=== PATIENT | female | born 1960 | race Caucasian/White ===

== ENCOUNTER → 2016-10-14 | Outpatient (REF) | payer MEDICARE, MEDICAID ==
[~2016-10-14] MED LIST: AMIT10TA2 PO; BLACK COHOSH PO; ESTRAVAN PO; TOPI100T OR; norco PO
== END ==
LOC: M LAB REF 20:14
PROVIDERS: ATTEND Physician Assistant
DX: R35.0 Frequency of micturition (principal)

== ENCOUNTER → 2016-11-16 | Outpatient (REF) | payer MEDICARE, MEDICAID ==
[2016-11-16 11:51] LABS: BASO % 0.4 % (0.0-1.0); EOS # 0.2 K/mm3 (0.0-0.50); EOS % 3.5 % (0.0-3.0); LARGE UNSTAINED CELL # 0.1 K/mm3 (0.0-0.4); LARGE UNSTAINED CELL % 1.1 % (0.0-4.0); LYMPH # 1.9 K/mm3 (1.5-4.5); LYMPH % 31.7 % (24.0-44.0); MEAN CORPUSCULAR HEMOGLOBIN 27.9 pg (27.0-33.0); MEAN CORPUSCULAR HGB CONC 32.1 g/dl (32.0-36.5); MEAN CORPUSCULAR VOLUME 87.1 fl (80.0-96.0); MONO # 0.3 K/mm3 (0.0-0.8); MONO % 5.8 % (0.0-5.0); NEUTROPHILS # 3.3 K/mm3 (1.8-7.7); NEUTROPHILS % 57.6 % (36.0-66.0); PLATELET COUNT, AUTOMATED 282 k/mm3 (150-450); WHITE BLOOD COUNT 5.6 K/mm3 (4.0-10.0)
[2016-11-16 12:16] LABS: VITAMIN B12 LEVEL 360 PG/ML (247-911)
[2016-11-16 12:32] LABS: ALBUMIN 3.5 GM/DL (3.2-5.2); ALBUMIN/GLOBULIN RATIO 1.09 (1.00-1.93); ALKALINE PHOSPHATASE 74 U/L (45-117); ALT/SGPT 25 U/L (12-78); ANION GAP 10 MEQ/L (8-16); AST/SGOT 15 U/L (15-37); BILIRUBIN,TOTAL 0.4 MG/DL (0.2-1.0); BLOOD UREA NITROGEN 16 MG/DL (7-18); CALCIUM LEVEL 9.1 MG/DL (8.5-10.1); CARBON DIOXIDE LEVEL 28 MEQ/L (21-32); CHLORIDE LEVEL 103 MEQ/L (98-107); CREATININE FOR GFR 0.77 MG/DL (0.55-1.02); GLOMERULAR FILTRATION RATE > 60.0 (>51); GLUCOSE, FASTING 82 MG/DL (70-105); PERCENT SATURATION 27.1 % (13.2-37.4); POTASSIUM SERUM 4.6 MEQ/L (3.5-5.1); SODIUM LEVEL 141 MEQ/L (136-145); TOTAL IRON BINDING CAPACITY 402 UG/DL (250-450); TOTAL PROTEIN 6.7 GM/DL (6.4-8.2)
[2016-11-16 12:49] LABS: ERYTHROCYTE SEDIMENTATION RATE 6 mm/hr (0-30)
[2016-11-18 00:06] LABS: Lyme Disease IgG/IgM Antibodie <0.91 ISR (0.00-0.90); Lyme Disease IgM Ab Quantitati <0.80 index (0.00-0.79)
== END ==
LOC: M LABDRAW1 11:28
PROVIDERS: ATTEND Internal Medicine Rheumatology
DX: M35.9 Systemic involvement of connective tissue, unspecified (principal); R53.83 Other fatigue; E55.9 Vitamin D deficiency, unspecified; D51.0 Vitamin B12 deficiency anemia due to intrinsic factor deficiency; Z79.899 Other long term (current) drug therapy

== ENCOUNTER → 2017-04-01 | Outpatient (CLI) | payer MEDICARE, MEDICAID ==
--- NOTE | 2017-04-01 11:29 | REPMRS ---
Patient History The patient states she had a clinical breast exam in March 2017. Patient has history of ovarian cancer at age 27. Family history of ovarian cancer in paternal aunt and breast cancer in maternal aunt. Benign stereotatic loc for ea lesion of the right breast, December 11, 2015. Digital Mammo Screening Bilat: April 01, 2017 - Exam #: [id number] Bilateral CC and MLO view(s) were taken. Technologist: Anamika Basilio Technologist Prior study comparison: October 30, 2015, bilateral digital mammo screening bilat performed at [facility]. March 27, 2015, right breast digital mammo diagnostic unilateral performed at [facility]. FINDINGS: The breast tissue is heterogeneously dense. This may lower the sensitivity of mammography. There is no evidence of cancer on this mammogram. There is mild increase in size of two right breast cysts and one left breast cyst... ASSESSMENT: BI-RADS/ACR category 2 mammogram. Benign finding(s). Recommendation Routine screening mammogram of both breasts in 1 year (for women over age 40). This mammogram was interpreted with the aid of an FDA-approved computer-aided dectection system. Electronically Signed By: Klaus Costa MD 04/01/17 [id number]
--- NOTE | 2017-04-01 12:11 | REP ---
Pelvic sonography: History: Lower quadrant pain on the left. Findings: Transabdominal and transvaginal scanning are performed. The uterus is surgically absent. Bladder rags[place] are smooth. No free fluid is seen. Neither ovary is observed either transabdominally or transvaginally. No ovarian cyst or mass is seen. Impression: Normal pelvic sonography status post hysterectomy. No ovarian lesion is seen. Neither ovary is directly visualized however. Signed by Jacob Arrington MD 04/01/2017 12:32 P
== END ==
LOC: M RAD 09:05
PROVIDERS: ATTEND Nurse Practitioner Women's Health
DX: Z12.31 Encounter for screening mammogram for malignant neoplasm of breast (principal); R10.32 Left lower quadrant pain; Z86.018 Personal history of other benign neoplasm; Z85.43 Personal history of malignant neoplasm of ovary
CPT/HCPCS: 76830; 76856; G0202

== ENCOUNTER → 2017-06-09 | Outpatient (CLI) | payer MEDICARE, MEDICAID ==
--- NOTE | 2017-06-10 08:05 | REP ---
PA and PA and lateral chest: Comparison is 12/03/2013. There is chronic effacement right costophrenic angle, unchanged, pleural effusion versus chronic pleural effusion. The lung aguayo otherwise clear. Cardiac size is normal. The vlad, mediastinum, and bony thorax are unremarkable. Impression: Chronic effacement left costophrenic angle. Otherwise, negative PA and lateral chest. Signed by Klaus Nolasco MD 06/10/2017 07:56 A
== END ==
LOC: M RAD 17:52
PROVIDERS: ATTEND Physician Assistant
DX: R91.8 Other nonspecific abnormal finding of lung field (principal)

== ENCOUNTER → 2017-06-15 | Outpatient (CLI) | payer MEDICARE, MEDICAID ==
[~2017-06-15] MED LIST changes: +ISOVUE-370 76% 100ML VIAL (Q9967) As Ordered ONE
--- NOTE | 2017-06-15 11:15 | REP ---
CT of the chest with IV contrast: Comparisons are the plain film PA and lateral views of the chest dated 06/09/[address] of the chest dated 05/29/2013. Additionally the visualized lower lung aguayo on CT studies of the abdomen are reviewed dated 09/26/2014 and 01/09/2015. There is chronic pleural thickening and chronic scarring in the adjacent lung parenchyma posterolaterally in the right lower lobe and to a lesser degree anterolaterally in the right lower lobe and right middle lobe, unchanged from all prior studies. There is no nodule or mass. No enlarging lesion. No pleural fluid is identified. There are no infiltrates or effusions. There are no masses or nodules. There is no mediastinal or hilar lymph node enlargement. There is no axillary lymph node enlargement. The thoracic aorta is unremarkable. Cardiac size is normal. There is no pericardial effusion. The visualized upper abdominal contents are unremarkable. There is no adrenal mass. Impression: There is chronic pleuroparenchymal scarring in the deep inferior sulcus of the right lung posteriorly, laterally and anteriorly, unchanged from the prior studies. Otherwise, negative CT study of the chest. Signed by Klaus Nolasco MD 06/15/2017 11:07 A
== END ==
LOC: M RAD 08:10
PROVIDERS: ATTEND Nurse Practitioner Adult Health
DX: R05 Cough (principal); R91.8 Other nonspecific abnormal finding of lung field; R07.89 Other chest pain
CPT/HCPCS: 71260; Q9967

== ENCOUNTER → 2017-10-13 | Outpatient (CLI) | payer MEDICARE, MEDICAID ==
[~2017-10-13] MED LIST changes: -AMIT10TA2 PO; -BLACK COHOSH PO; +E-Z-GAS II EFFERVESCENT PACKET (SODIUM BICARB./CITRIC ACID/SIMETHICONE) As Ordered; +E-Z-HD 98% w/w 340GM SUSP BTL As Ordered; +E-Z-PAQUE 96% w/w SUSP 176GM BTL As Ordered; -ESTRAVAN PO; -ISOVUE-370 76% 100ML VIAL (Q9967) As Ordered ONE; -TOPI100T OR; -norco PO
== END ==
LOC: M RAD 08:07
DX: R13.10 Dysphagia, unspecified (principal); K21.9 Gastro-esophageal reflux disease without esophagitis; K22.5 Diverticulum of esophagus, acquired; K44.9 Diaphragmatic hernia without obstruction or gangrene
CPT/HCPCS: 74220

== ENCOUNTER 2019-04-22 13:34 | Emergency (ER) | payer MEDICARE, MEDICAID ==
[~2019-04-22] VITALS: Ht 170.2 cm; Wt 84.1 kg
[~2019-04-22 13:34] MED LIST changes: +AMIT10TA2 PO; +BLACK COHOSH PO; -E-Z-GAS II EFFERVESCENT PACKET (SODIUM BICARB./CITRIC ACID/SIMETHICONE) As Ordered; -E-Z-HD 98% w/w 340GM SUSP BTL As Ordered; -E-Z-PAQUE 96% w/w SUSP 176GM BTL As Ordered; +ESTRAVAN PO; +TOPI100T OR; +norco PO
[2019-04-22] MEDS ORDERED: ACETAMINOPHEN TAB 650MG DOSE (2X325MG) PO ONE (14:00)
[2019-04-22] MEDS ORDERED: RANI300T PO (14:11)
[2019-04-22] MEDS ORDERED: METO1TAB32 PO (14:11)
[2019-04-22] MEDS ORDERED: ESTR625TA PO (14:11)
[2019-04-22] MEDS ORDERED: PANT40TA3 PO (14:11)
--- NOTE | 2019-04-22 14:15 | REP ---
Clinical: Altered mental status. Findings: Age-related atrophy and microvascular ischemic changes are appreciated. The ventricles and sulci are symmetric. Costa-white differentiation is maintained. There is no evidence for acute intracranial hemorrhage, mass/mass effect, pathology or infarction. No extra-axial fluid collection. Calvarium is intact. Paranasal sinuses and mastoid air cells are clear. Impression: Age related atrophy and microvascular ischemic changes. No acute intracranial hemorrhage, infarction, or mass/mass effect. Electronically Signed by Moises Sinclair MD 04/22/2019 02:06 P
--- NOTE | 2019-04-22 14:16 | REP ---
Clinical: Chest pain. Technique: PA and lateral. Comparison: 05/09/2013 Findings: Mediastinum and cardiac silhouette are normal. Chronic pleuroparenchymal changes at the right base are noted. No acute consolidation, effusion, or pneumothorax. Skeletal structures intact. Impression: Chronic pleuroparenchymal changes (right greater than left). Electronically Signed by Moises Sinclair MD 04/22/2019 02:08 P
[2019-04-22 14:17] LABS: BASO # 0.1 10^3/uL (0.0-0.2); BASO % 0.9 % (0.0-1.0); EOS # 0.3 10^3/uL (0.0-0.50); EOS % 3.9 % (0.0-3.0); HEMATOCRIT 42.5 % (36.0-47.0); HEMOGLOBIN 13.6 g/dl (12.0-15.5); LYMPH # 1.7 10^3/uL (1.5-4.5); LYMPH % 25.1 % (24.0-44.0); MEAN CORPUSCULAR VOLUME 87.4 fl (80.0-96.0); MONO # 0.5 10^3/uL (0.0-0.8); MONO % 7.6 % (0.0-5.0); NEUTROPHILS # 4.2 10^3/uL (1.8-7.7); NEUTROPHILS % 62.2 % (36.0-66.0); PLATELET COUNT, AUTOMATED 286 10^3/uL (150-450); RED BLOOD COUNT 4.86 10^6/uL (4.00-5.40); WHITE BLOOD COUNT 6.7 10^3/uL (4.0-10.0)
[2019-04-22 14:28] LABS: INR 0.99; PROTHROMBIN TIME 12.8 SECONDS (11.8-14.0)
[2019-04-22 14:29] LABS: PARTIAL THROMBOPLASTIN TIME 27.2 SECONDS (25.0-38.4)
[2019-04-22 14:46] LABS: ALBUMIN 3.2 GM/DL (3.2-5.2); ALT/SGPT 423 U/L (12-78); BILIRUBIN,DIRECT 1.9 MG/DL (0.0-0.2); BILIRUBIN,TOTAL 2.8 MG/DL (0.2-1.0); BLOOD UREA NITROGEN 12 MG/DL (7-18); CALCIUM LEVEL 8.6 MG/DL (8.8-10.2); CARBON DIOXIDE LEVEL 28 MEQ/L (21-32); CHLORIDE LEVEL 105 MEQ/L (98-107); CK-MB VALUE MASS < 1.0 NG/ML (<3.6); CPK CREATINE PHOSPHOKINASE 66 U/L (26-192); CREATININE FOR GFR 0.79 MG/DL (0.55-1.30); GLOMERULAR FILTRATION RATE > 60.0 (>45); GLUCOSE, FASTING 101 MG/DL (70-100); LIPASE 261 U/L (73-393); MB/CK RELATIVE INDEX 1.52 (< OR =4); POTASSIUM SERUM 3.9 MEQ/L (3.5-5.1); SODIUM LEVEL 139 MEQ/L (136-145); TROPONIN I < 0.02 NG/ML (< 0.10)
[2019-04-22] MEDS ORDERED: ISOVUE-370 76% 100ML VIAL (Q9967) As Ordered ONE (15:05)
[2019-04-22 15:45] VITALS: BP 117/59
--- NOTE | 2019-04-23 07:53 | REP ---
Clinical: Chest pain. Rule out aortic dissection. Technique: Axial contrast enhanced images from the thoracic inlet to the upper abdomen with coronal and sagittal re-formations using 100 ml Isovue 370 intravenous contrast material. Comparison: 05/29/2013 Findings: Maximal enhancement of the thoracic aorta is achieved and there is no evidence for aortic aneurysm or dissection. No significant atherosclerotic changes noted. Heart and pericardium are normal. Pulmonary vasculature appears normal. No adenopathy. The bilateral lung aguayo demonstrate minimal chronic right basilar fibroatelectatic changes. No consolidation. No effusion. No pneumothorax. Osseous structures grossly intact. Impression: 1. Normal thoracic aorta without aneurysm or dissection. Normal heart/pericardium and pulmonary vasculature. 2. Chronic scarring at the right lung base. 3. No acute mediastinal or pleuroparenchymal process. Electronically Signed by Moises Sinclair MD 04/22/2019 03:25 P
--- NOTE | 2019-04-23 07:54 | REP ---
Clinical: Chest pain. Rule out abdominal aortic dissection. Technique: Axial contrast enhanced images from the lung bases to the pubic symphysis using 100 ml Isovue 370 intravenous contrast material with coronal and sagittal re-formations. Findings: Maximal enhancement of the aorta and branch vessels achieved and there is no evidence for abdominal aortic aneurysm or dissection. Very minimal atherosclerotic changes are noted. Branch vessels including celiac axis, superior mesenteric artery, inferior mesenteric artery, bilateral renal arteries and common iliac arteries are normal. Liver, spleen, pancreas, gallbladder, bilateral adrenal glands and kidneys are normal. The enteric system is without obstruction or acute inflammatory process. Normal terminal ileum and appendix identified in the right lower quadrant. Colonic/sigmoid diverticulosis noted without acute diverticulitis. Pelvis demonstrates normal bladder and evidence for prior hysterectomy. No ascites. No free air. No adenopathy. Musculoskeletal structures demonstrate age-related degenerative changes. Impression: 1. Normal abdominal aorta and branch vessels without aneurysm or dissection. 2. No obvious acute abdominopelvic pathology appreciated. No ascites, focal inflammatory stranding, or adenopathy. Electronically Signed by Moises Sinclair MD 04/22/2019 03:29 P
--- NOTE | 2019-04-23 19:44 | ECGEPIP ---
[facility] - ED Test Date: 2019-04-22 Pat Name: MICA SOSA Department: Room: - Gender: Female [employer] Superintendent: [facility] : 1960 Requested By: DAYNE García Order Number: [id number] Reading MD: Elliot Olvera Measurements Intervals [place] Rate: 79 P: 20 AL: 137 QRS: 23 QRSD: 105 T: 46 QT: 387 QTc: 444 Interpretive Statements SINUS RHYTHM NONSPECIFIC ST T WAVE CHANGES cw 07/03/15 rate increased [facility] Electronically Signed on 04-23-2019 19:44:17 EDT by Elliot Olvera
== END 2019-04-22 16:46 | disposition home or self-care (01) ==
LOC: M ED 13:34
DX: R07.9 Chest pain, unspecified (principal); R94.5 Abnormal results of liver function studies; R11.0 Nausea; J44.9 Chronic obstructive pulmonary disease, unspecified; J45.909 Unspecified asthma, uncomplicated; K21.9 Gastro-esophageal reflux disease without esophagitis; I34.1 Nonrheumatic mitral (valve) prolapse; Z87.891 Personal history of nicotine dependence
CPT/HCPCS: 36415; 70450; 71046; 71275; 74177; 80048; 80076; 82550; 82553; 83690; 84484; 85025; 85610; 85730; 93005; 93041; 94760; 99285; Q9967

== ENCOUNTER → 2019-04-24 | Outpatient (REF) | payer MEDICARE, MEDICAID ==
[~2019-04-24] MED LIST changes: +ESTR625TA; +METO1TAB32; +PANT40TA3; +RANI300T
[2019-04-24 15:46] LABS: BASO # 0.1 10^3/uL (0.0-0.2); BASO % 0.5 % (0.0-1.0); EOS # 0.1 10^3/uL (0.0-0.50); EOS % 0.9 % (0.0-3.0); HEMATOCRIT 41.3 % (36.0-47.0); HEMOGLOBIN 13.2 g/dl (12.0-15.5); LYMPH % 20.9 % (24.0-44.0); MEAN CORPUSCULAR HEMOGLOBIN 28.3 pg (27.0-33.0); MEAN CORPUSCULAR VOLUME 88.4 fl (80.0-96.0); MONO # 0.6 10^3/uL (0.0-0.8); MONO % 6.3 % (0.0-5.0); NEUTROPHILS # 6.9 10^3/uL (1.8-7.7); NEUTROPHILS % 70.9 % (36.0-66.0); PLATELET COUNT, AUTOMATED 323 10^3/uL (150-450); RED BLOOD COUNT 4.67 10^6/uL (4.00-5.40); WHITE BLOOD COUNT 9.8 10^3/uL (4.0-10.0)
[2019-04-24 17:45] LABS: ALBUMIN 3.4 GM/DL (3.2-5.2); ALT/SGPT 230 U/L (12-78); BILIRUBIN,DIRECT 0.3 MG/DL (0.0-0.2); BILIRUBIN,TOTAL 0.7 MG/DL (0.2-1.0); BLOOD UREA NITROGEN 11 MG/DL (7-18); CALCIUM LEVEL 9.2 MG/DL (8.8-10.2); CARBON DIOXIDE LEVEL 30 MEQ/L (21-32); CHLORIDE LEVEL 103 MEQ/L (98-107); CREATININE FOR GFR 0.92 MG/DL (0.55-1.30); GLOMERULAR FILTRATION RATE > 60.0 (>45); GLUCOSE, FASTING 79 MG/DL (70-100); POTASSIUM SERUM 4.3 MEQ/L (3.5-5.1); SODIUM LEVEL 140 MEQ/L (136-145); TOTAL PROTEIN 6.6 GM/DL (6.4-8.2); TROPONIN I < 0.02 NG/ML (< 0.10)
[2019-04-25 10:46] LABS: HEPATITIS B SURFACE ANTIGEN NEGATIVE (NEGATIVE)
[2019-04-25 11:12] LABS: HEPATITIS C VIRUS ABY INDEX 0.1 INDEX (<0.8)
[2019-04-25 11:13] LABS: HEPATITIS B CORE ANTIBODY IGM NEGATIVE (NEGATIVE)
[2019-04-25 11:15] LABS: HEPATITIS A ANTIBODY IGM NEGATIVE (NEGATIVE)
== END ==
LOC: M SFHCPLAZ 14:33
PROVIDERS: ATTEND Family Medicine
DX: R74.8 Abnormal levels of other serum enzymes (principal); R07.89 Other chest pain

== ENCOUNTER → 2019-04-30 | Outpatient (CLI) | payer MEDICARE, MEDICAID ==
--- NOTE | 2019-04-30 13:22 | REP ---
Right upper quadrant sonography: History: Right-sided pain. Elevated liver enzymes. Comparison study: Comparison CT study April 22, 2019. Findings: Scanning through the right upper quadrant of the abdomen demonstrates a normal sized gallbladder containing multiple large calculi measuring up to 0.4 cm in greatest diameter. No pericholecystic fluid is seen. The gallbladder is normal in size. Common bile duct is normal measuring 0.2 cm in greatest diameter. No focal liver lesion is seen. Liver size is normal. No pancreatic abnormality is observed. No right renal abnormality is seen. There is no evidence of ascites. The right kidney measures 10.0 x 5.4 x 4.4 cm. Impression: Multiple large stones in the gallbladder. Otherwise negative right upper quadrant sonography. Electronically Signed by Jacob Arrington MD 04/30/2019 01:13 P
== END ==
LOC: M WHC 09:22
PROVIDERS: ATTEND Family Medicine
DX: R74.8 Abnormal levels of other serum enzymes (principal)

== ENCOUNTER → 2019-05-02 | Outpatient (REF) | payer MEDICARE, MEDICAID ==
[~2019-05-02] MED LIST changes: -ESTR625TA; +ESTR625TA PO; +HYDR-3713 PO; -METO1TAB32; +METO1TAB32 PO; -PANT40TA3; +PANT40TA3 PO; -RANI300T; +RANI300T PO
== END ==
LOC: M SFHCADAM 14:10
PROVIDERS: ATTEND Physician Assistant
DX: K80.20 Calculus of gallbladder without cholecystitis without obstruction (principal); R74.8 Abnormal levels of other serum enzymes; Z53.8 Procedure and treatment not carried out for other reasons

== ENCOUNTER → 2019-05-06 | Outpatient (REF) | payer MEDICARE, MEDICAID ==
[~2019-05-06] MED LIST changes: +ESTR625TA; -ESTR625TA PO; -HYDR-3713 PO; +METO1TAB32; -METO1TAB32 PO; +PANT40TA3; -PANT40TA3 PO; +RANI300T; -RANI300T PO
[2019-05-06 17:23] LABS: HEMATOCRIT 41.5 % (36.0-47.0); MEAN CORPUSCULAR HEMOGLOBIN 27.3 pg (27.0-33.0); MEAN CORPUSCULAR HGB CONC 31.3 g/dl (32.0-36.5); MEAN CORPUSCULAR VOLUME 87.2 fl (80.0-96.0); PLATELET COUNT, AUTOMATED 312 10^3/uL (150-450); RED BLOOD COUNT 4.76 10^6/uL (4.00-5.40); WHITE BLOOD COUNT 6.6 10^3/uL (4.0-10.0)
[2019-05-06 17:29] LABS: ALBUMIN 3.6 GM/DL (3.2-5.2); ALT/SGPT 29 U/L (12-78); BILIRUBIN,TOTAL 0.7 MG/DL (0.2-1.0); BLOOD UREA NITROGEN 15 MG/DL (7-18); CALCIUM LEVEL 8.8 MG/DL (8.8-10.2); CARBON DIOXIDE LEVEL 30 MEQ/L (21-32); CHLORIDE LEVEL 103 MEQ/L (98-107); CREATININE FOR GFR 0.77 MG/DL (0.55-1.30); GLOMERULAR FILTRATION RATE > 60.0 (>45); GLUCOSE, FASTING 74 MG/DL (70-100); POTASSIUM SERUM 4.5 MEQ/L (3.5-5.1); SODIUM LEVEL 139 MEQ/L (136-145); TOTAL PROTEIN 6.7 GM/DL (6.4-8.2)
== END ==
LOC: M SFHCADAM 09:23
PROVIDERS: ATTEND Physician Assistant
DX: K80.20 Calculus of gallbladder without cholecystitis without obstruction (principal); R74.8 Abnormal levels of other serum enzymes

== ENCOUNTER 2019-06-15 05:44 | Day surgery (SDC) | payer MEDICARE, MEDICAID ==
[~2019-06-15] VITALS: Ht 170.2 cm; Wt 83.8 kg
[~2019-06-15 05:44] MED LIST changes: -ESTR625TA; +ESTR625TA PO; -METO1TAB32; +METO1TAB32 PO; -PANT40TA3; +PANT40TA3 PO; -RANI300T; +RANI300T PO
[2019-06-15] MEDS ORDERED: LR 1,000 ML IV ONE (07:00)
[2019-06-15] MEDS ORDERED: AMPICILLIN SOD/SULBACTAM SOD 3 GM in D5W MINI-BAG PLUS 100 ML IV ONE (07:00)
[2019-06-15] MEDS ORDERED: BUPIVACAINE HCL 0.25% 30 ML VIAL As Ordered ONE (07:06)
[2019-06-15] MEDS ORDERED: LIDOCAINE 1% SDV INJ 30 ML VIAL As Ordered ONE (07:06)
[2019-06-15] MEDS ORDERED: CONRAY-60 60% 50ML VIAL (Q9961) As Ordered ONE (07:06)
[2019-06-15] MEDS ORDERED: KETOROLAC 60 MG/2 ML VIAL (J1885) As Ordered ONE (07:07)
[2019-06-15] MEDS ORDERED: PROPOFOL 200 MG/20 ML VIAL As Ordered ONE (07:07)
[2019-06-15] MEDS ORDERED: LIDOCAINE 2% INJ 100 MG/5 ML SDV (FOR ANES.) As Ordered ONE (07:08)
[2019-06-15] MEDS ORDERED: ROCURONIUM BROMIDE 50 MG/5 ML VIAL As Ordered ONE (07:08)
[2019-06-15] MEDS ORDERED: MIDAZOLAM INJ 2 MG/2 ML VIAL (J2250) As Ordered ONE (07:08)
[2019-06-15] MEDS ORDERED: fentaNYL 100 MCG/2 ML INJECTION (J3010) As Ordered ONE ×2 (07:08→10:09)
[2019-06-15] MEDS ORDERED: ONDANSETRON 4MG/2ML VIAL (J2405) As Ordered ONE ×2 (07:09→10:28)
[2019-06-15] MEDS ORDERED: dexameTHASONE 4 MG/ML 1ML VIAL (J1100) As Ordered ONE (07:09)
[2019-06-15] MEDS ORDERED: GLUCAGON FOR INJ 1 MG VIAL (J1610) As Ordered ONE (07:55)
[2019-06-15] MEDS ORDERED: BUPIVACAINE LIPOSOME/PF 1.3% 20ML VIAL (13.3MG/ML)(EXPAREL)(C9290 PER1MG) As Ordered ONE (09:17)
[2019-06-15] MEDS: fentaNYL 100 MCG/2 ML INJECTION (J3010) IV PRN ×3 (10:10→10:20)
[2019-06-15] MEDS ORDERED: METOCLOPRAMIDE INJ 10MG/2ML VIAL (J2765) IV PRN (10:15)
[2019-06-15] MEDS ORDERED: NORCO, ANEXSIA 5/325MG TABLET (HYDROcodone/ACETAMINOPHEN) PO PRN ×2 (10:15)
[2019-06-15] MEDS ORDERED: oxyCODONE 5MG TAB PO PRN (10:15)
[2019-06-15] MEDS ORDERED: ONDANSETRON 4MG/2ML VIAL (J2405) IV PRN ×2 (10:15)
[2019-06-15] MEDS ORDERED: KETOROLAC 30 MG/ML VIAL (J1885) IV PRN (10:15)
[2019-06-15] MEDS ORDERED: LR 1,000 ML IV SCH (10:15)
[2019-06-15] MEDS ORDERED: HYDR-3713 PO (10:32)
--- NOTE | 2019-06-15 10:38 | ROOPDOC ---
[facility] Report Of Operation Report of Operation DATE OF PROCEDURE: 06/15/19 PREPROCEDURE DIAGNOSES: Cholelithiasis, abnormal LFTs. POSTPROCEDURE DIAGNOSES: Cholelithiasis, Chronic Cholecystitis PROCEDURE: Laparoscopic Cholecystectomy with Introperative Cholangiogram. SURGEON: Dhaval Neil MD STEEL WELDER: ANESTHESIA: General Anesthesia. ESTIMATED BLOOD LOSS: Approximately 20 mL. COMPLICATIONS: none. REMARKS: 59 F with an episode of abdominal pain/chest pain that led her to the ER and was found to have evidence for cholelithiasis, transient elevation of her AST/ALT and bilirubin consistent with transient dropping of stones into her biliary tree. She is brought today for laparoscopic cholecystectomy PROCEDURE NOTE: Chronic omental adhesions enveloping the gallbladder which is mildly thickened but no acute edema. 2 large 1 cm floating stones in the neck. short cystic duct with debris in the duct flushed out with the cholangiocatheter placement of flushing. Normal appearing ducts with good flow to the duodenum without any intraluminal filling defects on cholangiogram. DESCRIPTION OF PROCEDURE DHAVAL NEIL MD Jun 15, 2019 10:38
--- NOTE | 2019-06-15 11:54 | REP ---
INTRAOPERATIVE CHOLANGIOGRAM: Two views performed during intraoperative cholangiogram. Contrast opacifies central intrahepatic ducts which are normal in caliber. The common bile duct appears normal in caliber with no evidence of filling defect or stricture. There is free flow of contrast into the duodenum. 12.9 seconds of fluoroscopy time utilized. Electronically Signed by Klaus Costa MD 06/15/2019 04:40 P
[2019-06-15 12:40] VITALS: BP 132/61
== END 2019-06-15 12:55 | disposition home or self-care (01) ==
LOC: M SDC 05:44
PROVIDERS: ATTEND Surgery
DX: K80.10 Calculus of gallbladder with chronic cholecystitis without obstruction (principal); I10 Essential (primary) hypertension; K21.9 Gastro-esophageal reflux disease without esophagitis; J44.9 Chronic obstructive pulmonary disease, unspecified; Z79.899 Other long term (current) drug therapy
CPT/HCPCS: 47563; 74300; 88304; C9290; J1100; J1610; J1885; J2250; J2405; J3010; Q9961

== ENCOUNTER → 2019-11-26 | Outpatient (CLI) | payer MEDICARE, MEDICAID ==
[~2019-11-26] MED LIST changes: +HYDR-3713 PO
[2019-11-26 13:35] LABS: BASO % 0.4 % (0.0-1.0); EOS # 0.2 10^3/uL (0.0-0.5); EOS % 3.3 % (0.0-3.0); HEMATOCRIT 38.8 % (36.0-47.0); HEMOGLOBIN 12.4 g/dl (12.0-15.5); LYMPH # 1.8 10^3/uL (1.5-5.0); LYMPH % 26.9 % (24.0-44.0); MEAN CORPUSCULAR HEMOGLOBIN 27.8 pg (27.0-33.0); MONO # 0.5 10^3/uL (0.0-0.8); MONO % 6.8 % (0.0-5.0); NEUTROPHILS # 4.2 10^3/uL (1.5-8.5); NEUTROPHILS % 62.2 % (36.0-66.0); PLATELET COUNT, AUTOMATED 290 10^3/uL (150-450); RED BLOOD COUNT 4.46 10^6/uL (4.00-5.40); WHITE BLOOD COUNT 6.7 10^3/uL (4.0-10.0)
[2019-11-26 14:16] LABS: CHOLESTEROL RISK RATIO 2.636 (<5); THYROID STIMULATING HORMONE 1.93 uIU/ML (0.358-3.740)
== END ==
LOC: M LAB 12:12
PROVIDERS: ATTEND Internal Medicine Cardiovascular Disease
DX: E66.3 Overweight (principal); Z79.899 Other long term (current) drug therapy

== ENCOUNTER → 2020-01-15 | Outpatient (REF) | payer MEDICARE, MEDICAID | LOC: M SFHCADAM 17:42 | PROVIDERS: ATTEND Physician Assistant | DX: Z01.818 Encounter for other preprocedural examination (principal); Z11.59 Encounter for screening for other viral diseases ==

== ENCOUNTER → 2020-01-21 | Outpatient (REF) | payer MEDICARE, MEDICAID ==
[2020-01-21 13:34] LABS: HEMATOCRIT 41.9 % (36.0-47.0); HEMOGLOBIN 13.3 g/dl (12.0-15.5); MEAN CORPUSCULAR HEMOGLOBIN 27.4 pg (27.0-33.0); MEAN CORPUSCULAR HGB CONC 31.7 g/dl (32.0-36.5); MEAN CORPUSCULAR VOLUME 86.4 fl (80.0-96.0); PLATELET COUNT, AUTOMATED 292 10^3/uL (150-450); RED BLOOD COUNT 4.85 10^6/uL (4.00-5.40)
[2020-01-21 13:45] LABS: ALBUMIN 3.3 GM/DL (3.2-5.2); ALT/SGPT 24 U/L (12-78); BILIRUBIN,TOTAL 0.5 MG/DL (0.2-1.0); BLOOD UREA NITROGEN 17 MG/DL (7-18); C REACTIVE PROTEIN QUANTITATIV 0.43 MG/DL (0.00-0.30); CALCIUM LEVEL 9.6 MG/DL (8.8-10.2); CARBON DIOXIDE LEVEL 31 MEQ/L (21-32); CHLORIDE LEVEL 103 MEQ/L (98-107); GLOMERULAR FILTRATION RATE > 60.0 (>45); GLUCOSE, FASTING 77 MG/DL (70-100); POTASSIUM SERUM 4.6 MEQ/L (3.5-5.1); SODIUM LEVEL 137 MEQ/L (136-145); TOTAL PROTEIN 6.6 GM/DL (6.4-8.2)
[2020-01-21 13:58] LABS: ERYTHROCYTE SEDIMENTATION RATE 6 mm/hr (0-30)
== END ==
LOC: M LABDRWAD 12:43
PROVIDERS: ATTEND Nurse Practitioner
DX: R19.7 Diarrhea, unspecified (principal); K92.1 Melena; K22.5 Diverticulum of esophagus, acquired

== ENCOUNTER → 2020-12-12 | Outpatient (CLI) | payer MEDICARE, MEDICAID ==
[~2020-12-12] MED LIST changes: +PANT40TA29 PO; -PANT40TA3 PO
--- NOTE | 2020-12-12 13:09 | REP ---
INDICATION: ACUTE LEFT SHOULDER PAIN. COMPARISON: None. TECHNIQUE: There are four views. FINDINGS: Mineralization is normal. There is acromioclavicular osteoarthritis. There is glenohumeral osteoarthritis. There is no fracture or dislocation. There are no calcifications or foreign bodies. IMPRESSION: Acromioclavicular and glenohumeral osteoarthritis. Otherwise, negative left shoulder. <Electronically signed by Klaus Nolasco > 12/12/20 [id number]
== END ==
LOC: M ADAMS 10:28
PROVIDERS: ATTEND Physician Assistant
DX: M25.512 Pain in left shoulder (principal)

== ENCOUNTER → 2021-04-16 | Outpatient (REF) | payer MEDICARE, MEDICAID ==
[2021-04-16 18:35] LABS: HEMATOCRIT 42.6 % (36.0-47.0); HEMOGLOBIN 13.3 g/dl (12.0-15.5); MEAN CORPUSCULAR HEMOGLOBIN 27.5 pg (27.0-33.0); MEAN CORPUSCULAR HGB CONC 31.2 g/dl (32.0-36.5); MEAN CORPUSCULAR VOLUME 88.2 fl (80.0-96.0); PLATELET COUNT, AUTOMATED 294 10^3/uL (150-450); RED BLOOD COUNT 4.83 10^6/uL (4.00-5.40); WHITE BLOOD COUNT 7.6 10^3/uL (4.0-10.0)
[2021-04-16 18:54] LABS: ALBUMIN 3.3 GM/DL (3.2-5.2); ALT/SGPT 28 U/L (12-78); BILIRUBIN,TOTAL 0.8 MG/DL (0.2-1.0); BLOOD UREA NITROGEN 15 MG/DL (7-18); CALCIUM LEVEL 9.1 MG/DL (8.8-10.2); CARBON DIOXIDE LEVEL 31 MEQ/L (21-32); CHLORIDE LEVEL 104 MEQ/L (98-107); CREATININE FOR GFR 0.72 MG/DL (0.55-1.30); GLOMERULAR FILTRATION RATE > 60.0 (>45); GLUCOSE, FASTING 107 MG/DL (70-100); POTASSIUM SERUM 4.6 MEQ/L (3.5-5.1); SODIUM LEVEL 138 MEQ/L (136-145); TOTAL PROTEIN 6.7 GM/DL (6.4-8.2)
== END ==
LOC: M LABDRWAD 17:34
PROVIDERS: ATTEND Internal Medicine Gastroenterology
DX: K21.9 Gastro-esophageal reflux disease without esophagitis (principal); K57.30 Diverticulosis of large intestine without perforation or abscess without bleeding; K92.1 Melena; K44.9 Diaphragmatic hernia without obstruction or gangrene; R10.33 Periumbilical pain; K64.0 First degree hemorrhoids

== ENCOUNTER → 2021-05-15 | Outpatient (CLI) | payer MEDICARE, MEDICAID ==
--- NOTE | 2021-05-15 09:05 | REP ---
INDICATION: HYDRONEPHROSIS, CALCULUS OF KIDNEY STONE PROTOCOL COMPARISON: 04/22/2019 TECHNIQUE: Axial noncontrast images from the lung bases to the pubic symphysis with coronal and sagittal reformations. This CT examination was performed using the following dose reduction techniques: Automated exposure control, adjustment of mA and/or kv according to the patient's size, and use of iterative reconstruction technique. FINDINGS: Lung bases demonstrate chronic pleuroparenchymal scarring. Visualized heart and pericardium normal. Liver, spleen, pancreas, and bilateral adrenal glands are normal. Evidence for prior cholecystectomy. The kidneys are essentially normal and without perinephric stranding, hydroureteronephrosis, intrarenal or obvious obstructing ureteral calculi. Small calcifications within the pelvis likely represent phleboliths and much less likely nonobstructing ureteral stone. The enteric system is unremarkable and without obstruction or acute inflammatory process. Normal terminal ileum and appendix identified in the right lower quadrant. Sigmoid diverticulosis noted without acute diverticulitis. Pelvis demonstrates normal bladder and prior hysterectomy. No ascites. No free air. No adenopathy. No focal inflammatory stranding. Abdominal aorta without aneurysm. Musculoskeletal structures demonstrate age-related degenerative changes without acute osseous abnormality. IMPRESSION: No acute abdominopelvic pathology appreciated. Urinary tract system appears essentially normal. Scattered sigmoid diverticula without acute diverticulitis. Evidence for prior cholecystectomy and hysterectomy. <Electronically signed by Moises Sinclair > 05/15/21 [id number]
== END ==
LOC: M RAD 08:15
PROVIDERS: ATTEND Internal Medicine Nephrology
DX: N13.30 Unspecified hydronephrosis (principal); N20.0 Calculus of kidney

== ENCOUNTER → 2021-10-29 | Outpatient (REF) | payer MEDICARE, MEDICAID ==
[2021-10-29 11:10] LABS: HEMATOCRIT 40.8 % (36.0-47.0); HEMOGLOBIN 12.7 g/dl (12.0-15.5); MEAN CORPUSCULAR HEMOGLOBIN 26.8 pg (27.0-33.0); MEAN CORPUSCULAR HGB CONC 31.1 g/dl (32.0-36.5); MEAN CORPUSCULAR VOLUME 86.3 fl (80.0-96.0); PLATELET COUNT, AUTOMATED 284 10^3/uL (150-450); RED BLOOD COUNT 4.73 10^6/uL (4.00-5.40); WHITE BLOOD COUNT 6.8 10^3/uL (4.0-10.0)
[2021-10-29 11:51] LABS: ALBUMIN 3.3 GM/DL (3.2-5.2); ALT/SGPT 25 U/L (12-78); BILIRUBIN,TOTAL 0.8 MG/DL (0.2-1.0); BLOOD UREA NITROGEN 13 MG/DL (7-18); CALCIUM LEVEL 9.4 MG/DL (8.8-10.2); CARBON DIOXIDE LEVEL 29 MEQ/L (21-32); CHLORIDE LEVEL 103 MEQ/L (98-107); CHOLESTEROL LEVEL 206 MG/DL (<200); CHOLESTEROL RISK RATIO 1.731 (<5); CREATININE FOR GFR 0.69 MG/DL (0.55-1.30); FREE T4 1.03 NG/DL (0.76-1.46); GLOMERULAR FILTRATION RATE > 60.0 (>45); GLUCOSE, FASTING 82 MG/DL (70-100); HDL CHOLESTEROL 119 MG/DL (>40); LDL CHOLESTEROL 70 MG/DL (<100); NON-HDL-C 87 MG/DL; POTASSIUM SERUM 4.8 MEQ/L (3.5-5.1); SODIUM LEVEL 139 MEQ/L (136-145); TOTAL PROTEIN 6.5 GM/DL (6.4-8.2); TRIGLYCERIDES LEVEL 83 MG/DL (<150)
[2021-10-29 11:54] LABS: FOLATE 16.8 NG/ML; VITAMIN B12 LEVEL 253 PG/ML
== END ==
LOC: M SFHCADAM 08:29
PROVIDERS: ATTEND Physician Assistant
DX: G47.00 Insomnia, unspecified (principal); I65.23 Occlusion and stenosis of bilateral carotid arteries; R51.9 Headache, unspecified; R41.3 Other amnesia

== ENCOUNTER → 2021-10-30 | Outpatient (CLI) | payer MEDICARE, MEDICAID ==
[~2021-10-30] MED LIST changes: +PROHANCE 279.3MG/ML 15ML VIAL As Ordered ONE; +PROHANCE 279.3MG/ML 5ML VIAL As Ordered ONE
== END ==
LOC: M RAD 09:58
PROVIDERS: ATTEND Physician Assistant
DX: G47.00 Insomnia, unspecified (principal)
CPT/HCPCS: 70553; A9576

== ENCOUNTER → 2021-12-23 | Outpatient (CLI) | payer MEDICARE, MEDICAID ==
[~2021-12-23] MED LIST changes: -PROHANCE 279.3MG/ML 15ML VIAL As Ordered ONE; -PROHANCE 279.3MG/ML 5ML VIAL As Ordered ONE
== END ==
LOC: M RAD 09:24
PROVIDERS: ATTEND Physician Assistant
DX: M79.662 Pain in left lower leg (principal)

== ENCOUNTER → 2022-03-04 | Outpatient (CLI) | payer BC, MEDICARE | LOC: M PLAIMG 10:01 | PROVIDERS: ATTEND Nurse Practitioner Family | DX: R30.0 Dysuria (principal); R10.9 Unspecified abdominal pain ==

== ENCOUNTER → 2022-03-10 | Outpatient (REF) | payer MEDICARE, MEDICAID ==
[2022-03-10 13:41] LABS: BASO % 0.6 % (0.0-1.0); EOS # 0.3 10^3/uL (0.0-0.5); HEMATOCRIT 41.7 % (36.0-47.0); LYMPH # 1.7 10^3/uL (1.5-5.0); LYMPH % 25.1 % (24.0-44.0); MEAN CORPUSCULAR HGB CONC 31.2 g/dl (32.0-36.5); MEAN CORPUSCULAR VOLUME 86.5 fl (80.0-96.0); MONO # 0.6 10^3/uL (0.0-0.8); MONO % 8.5 % (2.0-8.0); NEUTROPHILS % 60.3 % (36.0-66.0); PLATELET COUNT, AUTOMATED 281 10^3/uL (150-450); RED BLOOD COUNT 4.82 10^6/uL (4.00-5.40); WHITE BLOOD COUNT 6.6 10^3/uL (4.0-10.0)
[2022-03-10 14:04] LABS: ALBUMIN 3.3 GM/DL (3.2-5.2); ALT/SGPT 32 U/L (12-78); BILIRUBIN,TOTAL 0.7 MG/DL (0.2-1.0); BLOOD UREA NITROGEN 15 MG/DL (7-18); C REACTIVE PROTEIN QUANTITATIV 0.46 MG/DL (0.00-0.30); CALCIUM LEVEL 10.1 MG/DL (8.8-10.2); CARBON DIOXIDE LEVEL 30 MEQ/L (21-32); CHLORIDE LEVEL 104 MEQ/L (98-107); CREATININE FOR GFR 0.78 MG/DL (0.55-1.30); GLOMERULAR FILTRATION RATE > 60.0 (>45); GLUCOSE, FASTING 90 MG/DL (70-100); POTASSIUM SERUM 4.8 MEQ/L (3.5-5.1); SODIUM LEVEL 139 MEQ/L (136-145); TOTAL PROTEIN 6.6 GM/DL (6.4-8.2)
[2022-03-10 14:16] LABS: ERYTHROCYTE SEDIMENTATION RATE 10 mm/hr (0-30)
== END ==
LOC: M SFHCADAM 08:15
PROVIDERS: ATTEND Physician Assistant
DX: M54.9 Dorsalgia, unspecified (principal); R10.9 Unspecified abdominal pain

== ENCOUNTER → 2022-03-26 | Outpatient (CLI) | payer MEDICARE, MEDICAID ==
[2022-03-26 12:58] LABS: APPEARANCE, URINE HAZY (CLEAR); BACTERIA, URINE AUTO 1+ (NEGATIVE); BILIRUBIN, URINE AUTO NEGATIVE (NEGATIVE); BLOOD, URINE BLOOD NEGATIVE (NEGATIVE); COLOR, URINE YELLOW (YELLOW); GLUCOSE, URINE (UA) AUTO NEGATIVE (NEGATIVE); KETONE, URINE AUTO NEGATIVE (NEGATIVE); LEUKOCYTE ESTERASE, URINE AUTO 2+ (NEGATIVE); MUCUS, URINE SMALL (NEGATIVE); NITRITE, URINE AUTO NEGATIVE (NEGATIVE); PROTEIN, URINE AUTO NEGATIVE (NEGATIVE); RBC, URINE AUTO 1 /HPF (0-3); SPECIFIC GRAVITY URINE AUTO 1.023 (1.002-1.035); SQUAMOUS EPITHELIAL CELL UR AU 9 /HPF (0-6); UROBILINOGEN, URINE AUTO 0.2 mg/dL (0.0-2.0); WBC, URINE AUTO 1 /HPF (0-3)
== END ==
LOC: M RAD 11:11
PROVIDERS: ATTEND Physician Assistant
DX: R10.84 Generalized abdominal pain (principal); Z90.49 Acquired absence of other specified parts of digestive tract

== ENCOUNTER → 2022-06-04 | Outpatient (CLI) | payer MEDICARE, MEDICAID | LOC: M PLARAD 08:18 | PROVIDERS: ATTEND Pain Medicine Interventional Pain Medicine | DX: M47.817 Spondylosis without myelopathy or radiculopathy, lumbosacral region (principal); M51.26 Other intervertebral disc displacement, lumbar region; M51.27 Other intervertebral disc displacement, lumbosacral region ==

== ENCOUNTER → 2022-07-06 | Outpatient (CLI) | payer MEDICARE | LOC: M PLAIMG 07:30 | PROVIDERS: ATTEND Pain Medicine Interventional Pain Medicine | DX: M54.14 Radiculopathy, thoracic region (principal) ==

== ENCOUNTER → 2022-12-07 | Outpatient (REF) | payer MEDICARE, MEDICAID ==
[2022-12-07 19:01] LABS: BACTERIA, URINE AUTO NEGATIVE (NEGATIVE); RBC, URINE AUTO 0 /HPF (0-3); SQUAMOUS EPITHELIAL CELL UR AU 0 /HPF (0-6); WBC, URINE AUTO 0 /HPF (0-3)
== END ==
LOC: M LAB REF 17:56
PROVIDERS: ATTEND Internal Medicine Nephrology
DX: R30.0 Dysuria (principal)

== ENCOUNTER → 2022-12-20 | Outpatient (REF) | payer MEDICARE, MEDICAID | LOC: M PLALAB 09:51 | PROVIDERS: ATTEND Nurse Practitioner Family | DX: Z12.4 Encounter for screening for malignant neoplasm of cervix (principal); R87.610 Atypical squamous cells of undetermined significance on cytologic smear of cervix (ASC-US) | CPT/HCPCS: 87624; G0123 ==

== ENCOUNTER → 2022-12-22 | Outpatient (CLI) | payer MEDICARE, MEDICAID | LOC: M PLAIMG 11:13 | PROVIDERS: ATTEND Internal Medicine Nephrology | DX: R30.0 Dysuria (principal); N13.30 Unspecified hydronephrosis; Z87.442 Personal history of urinary calculi ==

== ENCOUNTER → 2023-06-03 | Outpatient (REF) | payer MEDICARE, MEDICAID ==
[2023-06-03 13:17] LABS: BASO # 0.1 10^3/uL (0.0-0.2); BASO % 0.7 % (0.0-1.0); EOS # 0.3 10^3/uL (0.0-0.5); EOS % 4.9 % (0.0-3.0); HEMATOCRIT 42.5 % (36.0-47.0); LYMPH # 1.7 10^3/uL (1.5-5.0); MEAN CORPUSCULAR HEMOGLOBIN 26.8 pg (27.0-33.0); MEAN CORPUSCULAR HGB CONC 30.6 g/dl (32.0-36.5); MEAN CORPUSCULAR VOLUME 87.6 fl (80.0-96.0); MONO # 0.5 10^3/uL (0.0-0.8); MONO % 6.9 % (2.0-8.0); NEUTROPHILS # 4.3 10^3/uL (1.5-8.5); NEUTROPHILS % 62.2 % (36.0-66.0); PLATELET COUNT, AUTOMATED 281 10^3/uL (150-450); RED BLOOD COUNT 4.85 10^6/uL (4.00-5.40)
[2023-06-03 13:43] LABS: CHOLESTEROL RISK RATIO 1.94 (<5); FOLATE 12.8 NG/ML (>5.4); HDL CHOLESTEROL 113.9 MG/DL (>40); LDL CHOLESTEROL 85.9 MG/DL (<100); NON-HDL-C 108.1 MG/DL
[2023-06-03 13:44] LABS: THYROID STIMULATING HORMONE 2.758 uIU/ML (0.55-4.78); TOTAL 25(OH) VITAMIN D 69.1 NG/ML (20.0-100.0)
== END ==
LOC: M SFHCADAM 08:14
PROVIDERS: ATTEND Physician Assistant
DX: I73.9 Peripheral vascular disease, unspecified (principal); I77.9 Disorder of arteries and arterioles, unspecified; M79.10 Myalgia, unspecified site; E53.8 Deficiency of other specified B group vitamins; Z79.899 Other long term (current) drug therapy

== ENCOUNTER → 2023-09-21 | Outpatient (REF) | payer MEDICARE, MEDICAID | LOC: M LAB REF 20:40 | PROVIDERS: ATTEND Physician Assistant | DX: J06.9 Acute upper respiratory infection, unspecified (principal) ==

== ENCOUNTER → 2023-12-02 | Outpatient (REF) | payer MEDICARE, MEDICAID ==
[2023-12-02 14:20] LABS: BLOOD UREA NITROGEN 19 MG/DL (9-23); CALCIUM LEVEL 9.5 MG/DL (8.3-10.6); CARBON DIOXIDE LEVEL 32 MMOL/L (20-31); CHLORIDE LEVEL 99 MMOL/L (98-107); CREATININE FOR GFR 0.77 MG/DL (0.55-1.30); GLOMERULAR FILTRATION RATE > 60.0 (>45); GLUCOSE, FASTING 83 MG/DL (74-106); POTASSIUM SERUM 4.4 MMOL/L (3.5-5.1); SODIUM LEVEL 136 MMOL/L (136-145)
== END ==
LOC: M SFHCADAM 08:24
PROVIDERS: ATTEND Physician Assistant
DX: R60.0 Localized edema (principal)

== ENCOUNTER → 2023-12-02 | Outpatient (REF) | payer MEDICARE, MEDICAID ==
[2023-12-02 14:47] LABS: BASO # 0.1 10^3/uL (0.0-0.2); BASO % 0.8 % (0.0-1.0); EOS # 0.3 10^3/uL (0.0-0.5); EOS % 4.9 % (0.0-3.0); HEMATOCRIT 41.1 % (36.0-47.0); LYMPH # 2.2 10^3/uL (1.5-5.0); LYMPH % 34.6 % (24.0-44.0); MEAN CORPUSCULAR HEMOGLOBIN 26.7 pg (27.0-33.0); MEAN CORPUSCULAR HGB CONC 31.6 g/dl (32.0-36.5); MEAN CORPUSCULAR VOLUME 84.6 fl (80.0-96.0); MONO # 0.6 10^3/uL (0.0-0.8); MONO % 9.2 % (2.0-8.0); NEUTROPHILS # 3.2 10^3/uL (1.5-8.5); NEUTROPHILS % 50.2 % (36.0-66.0); PLATELET COUNT, AUTOMATED 319 10^3/uL (150-450); RED BLOOD COUNT 4.86 10^6/uL (4.00-5.40); WHITE BLOOD COUNT 6.3 10^3/uL (4.0-10.0)
[2023-12-02 15:12] LABS: ALBUMIN 3.2 G/DL (3.2-5.2); ALKALINE PHOSPHATASE 80 U/L (46-116); ALT/SGPT 18 U/L (7.0-40); AST/SGOT 16 U/L (<34); BILIRUBIN,TOTAL 0.9 MG/DL (0.3-1.2); BLOOD UREA NITROGEN 18 MG/DL (9-23); CALCIUM LEVEL 9.2 MG/DL (8.3-10.6); CARBON DIOXIDE LEVEL 31 MMOL/L (20-31); CHLORIDE LEVEL 101 MMOL/L (98-107); CHOLESTEROL LEVEL 204 MG/DL (<200); CHOLESTEROL RISK RATIO 2.02 (<5); GLOMERULAR FILTRATION RATE > 60.0 (>45); GLUCOSE, FASTING 81 MG/DL (74-106); HDL CHOLESTEROL 100.9 MG/DL (>40); LDL CHOLESTEROL 80.5 MG/DL (<100); NON-HDL-C 103.1 MG/DL; POTASSIUM SERUM 4.4 MMOL/L (3.5-5.1); SODIUM LEVEL 138 MMOL/L (136-145); TOTAL PROTEIN 6.5 G/DL (5.7-8.2); TRIGLYCERIDES LEVEL 113 MG/DL (<150)
[2023-12-02 15:14] LABS: THYROID STIMULATING HORMONE 2.339 uIU/ML (0.55-4.78)
== END ==
LOC: M LABDRWAD 12:37
PROVIDERS: ATTEND Internal Medicine Cardiovascular Disease
DX: R94.31 Abnormal electrocardiogram [ECG] [EKG] (principal); R07.2 Precordial pain; R06.02 Shortness of breath; I65.23 Occlusion and stenosis of bilateral carotid arteries; R60.0 Localized edema; E78.2 Mixed hyperlipidemia; R06.83 Snoring; E66.3 Overweight; R42 Dizziness and giddiness

== ENCOUNTER → 2024-06-05 | Outpatient (REF) | payer MEDICARE, MEDICAID ==
[2024-06-05 15:05] LABS: FOLATE 12.3 NG/ML (>5.4)
[2024-06-05 15:06] LABS: HEMOGLOBIN 12.1 g/dl (12.0-15.5); MEAN CORPUSCULAR HEMOGLOBIN 26.2 pg (27.0-33.0); MEAN CORPUSCULAR VOLUME 84.6 fl (80.0-96.0); PLATELET COUNT, AUTOMATED 274 10^3/uL (150-450); RED BLOOD COUNT 4.61 10^6/uL (4.00-5.40); VITAMIN B12 LEVEL 1380 PG/ML (211-911)
[2024-06-05 15:29] LABS: ALKALINE PHOSPHATASE 93 U/L (46-116); ALT/SGPT 18 U/L (7.0-40); AST/SGOT 14 U/L (<34); BILIRUBIN,TOTAL 0.6 MG/DL (0.3-1.2); BLOOD UREA NITROGEN 17 MG/DL (9-23); CALCIUM LEVEL 9.3 MG/DL (8.3-10.6); CARBON DIOXIDE LEVEL 29 MMOL/L (20-31); CHLORIDE LEVEL 103 MMOL/L (98-107); CHOLESTEROL LEVEL 204 MG/DL (<200); CREATININE FOR GFR 0.75 MG/DL (0.55-1.30); GLOMERULAR FILTRATION RATE > 60.0 (>45); GLUCOSE, FASTING 125 MG/DL (74-106); HDL CHOLESTEROL 92.6 MG/DL (>40); LDL CHOLESTEROL 89.2 MG/DL (<100); NON-HDL-C 111.4 MG/DL; POTASSIUM SERUM 3.9 MMOL/L (3.5-5.1); SODIUM LEVEL 139 MMOL/L (136-145); TOTAL PROTEIN 6.2 G/DL (5.7-8.2); TRIGLYCERIDES LEVEL 111 MG/DL (<150)
== END ==
LOC: M SFHCADAM 09:21
PROVIDERS: ATTEND Physician Assistant
DX: N95.1 Menopausal and female climacteric states (principal); K21.9 Gastro-esophageal reflux disease without esophagitis; I77.9 Disorder of arteries and arterioles, unspecified; G47.00 Insomnia, unspecified; J45.20 Mild intermittent asthma, uncomplicated; R00.2 Palpitations; R60.0 Localized edema; Z87.442 Personal history of urinary calculi; E78.00 Pure hypercholesterolemia, unspecified

== ENCOUNTER → 2024-11-13 | Outpatient (REF) | payer MEDICARE, MEDICAID ==
[2024-11-13 18:04] LABS: C REACTIVE PROTEIN QUANTITATIV 0.76 MG/DL (<1.0)
[2024-11-13 18:06] LABS: ALBUMIN 3.1 G/DL (3.2-5.2); ALKALINE PHOSPHATASE 95 U/L (35-104); ALT/SGPT 21 U/L (7.0-40); AST/SGOT 19 U/L (<34); BILIRUBIN,TOTAL 0.6 MG/DL (0.3-1.2); BLOOD UREA NITROGEN 17 MG/DL (9-23); CALCIUM LEVEL 9.1 MG/DL (8.3-10.6); CARBON DIOXIDE LEVEL 32 MMOL/L (20-31); CHLORIDE LEVEL 101 MMOL/L (98-107); CREATININE FOR GFR 0.73 MG/DL (0.55-1.30); GLOMERULAR FILTRATION RATE > 60.0 (>45); GLUCOSE, FASTING 80 MG/DL (74-106); POTASSIUM SERUM 4.5 MMOL/L (3.5-5.1); SODIUM LEVEL 139 MMOL/L (136-145); TOTAL PROTEIN 6.6 G/DL (5.7-8.2)
[2024-11-13 18:08] LABS: BASO % 0.5 % (0.0-1.0); EOS # 0.5 10^3/uL (0.0-0.5); EOS % 6.2 % (0.0-3.0); FREE T4 1.04 NG/DL (0.89-1.76); HEMATOCRIT 40.8 % (36.0-47.0); HEMOGLOBIN 12.8 g/dl (12.0-15.5); LYMPH # 2.1 10^3/uL (1.5-5.0); LYMPH % 28.6 % (24.0-44.0); MEAN CORPUSCULAR HGB CONC 31.4 g/dl (32.0-36.5); MEAN CORPUSCULAR VOLUME 82.9 fl (80.0-96.0); MONO # 0.7 10^3/uL (0.0-0.8); MONO % 9.3 % (2.0-8.0); NEUTROPHILS # 4.1 10^3/uL (1.5-8.5); PLATELET COUNT, AUTOMATED 287 10^3/uL (150-450); RED BLOOD COUNT 4.92 10^6/uL (4.00-5.40); THYROID STIMULATING HORMONE 2.317 uIU/ML (0.55-4.78); VITAMIN B12 LEVEL 1570 PG/ML (211-911); WHITE BLOOD COUNT 7.5 10^3/uL (4.0-10.0)
[2024-11-13 18:09] LABS: FOLATE 11.8 NG/ML (>5.4)
== END ==
LOC: M SFHCADAM 11:43
PROVIDERS: ATTEND Physician Assistant
DX: R51.9 Headache, unspecified (principal); R42 Dizziness and giddiness; J02.9 Acute pharyngitis, unspecified; Z79.899 Other long term (current) drug therapy

== ENCOUNTER → 2024-11-27 | Outpatient (CLI) | payer MEDICARE, MEDICAID ==
[~2024-11-27] MED LIST changes: +PROHANCE 279.3MG/ML 15ML VIAL ONE; +PROHANCE 279.3MG/ML 5ML VIAL ONE
== END ==
LOC: M PLAIMG 09:41
PROVIDERS: ATTEND Physician Assistant
DX: R51.9 Headache, unspecified (principal); R42 Dizziness and giddiness; I67.82 Cerebral ischemia
CPT/HCPCS: 70553; A9576

== ENCOUNTER → 2024-12-27 | Outpatient (CLI) | payer MEDICARE, MEDICAID ==
[~2024-12-27] MED LIST changes: -PROHANCE 279.3MG/ML 15ML VIAL ONE; -PROHANCE 279.3MG/ML 5ML VIAL ONE
== END ==
LOC: M ADAMS 13:29
PROVIDERS: ATTEND Physician Assistant
DX: R06.02 Shortness of breath (principal)

== ENCOUNTER → 2024-12-28 | Outpatient (REF) | payer MEDICARE, MEDICAID ==
[2024-12-28 19:03] LABS: BASO # 0.1 10^3/uL (0.0-0.2); BASO % 0.6 % (0.0-1.0); EOS # 0.3 10^3/uL (0.0-0.5); EOS % 4.1 % (0.0-3.0); HEMATOCRIT 40.5 % (36.0-47.0); HEMOGLOBIN 12.6 g/dl (12.0-15.5); LYMPH # 2.6 10^3/uL (1.5-5.0); LYMPH % 33.7 % (24.0-44.0); MEAN CORPUSCULAR HGB CONC 31.1 g/dl (32.0-36.5); MEAN CORPUSCULAR VOLUME 83.7 fl (80.0-96.0); MONO # 0.6 10^3/uL (0.0-0.8); NEUTROPHILS # 4.1 10^3/uL (1.5-8.5); NEUTROPHILS % 53.3 % (36.0-66.0); PLATELET COUNT, AUTOMATED 302 10^3/uL (150-450); RED BLOOD COUNT 4.84 10^6/uL (4.00-5.40); WHITE BLOOD COUNT 7.8 10^3/uL (4.0-10.0)
[2024-12-28 19:22] LABS: ALBUMIN 3.3 G/DL (3.2-5.2); BILIRUBIN,TOTAL 0.5 MG/DL (0.3-1.2); CALCIUM LEVEL 9.4 MG/DL (8.3-10.6); CREATININE FOR GFR 0.78 MG/DL (0.55-1.30); GLOMERULAR FILTRATION RATE 84.2 (>45); POTASSIUM SERUM 4.3 MMOL/L (3.5-5.1); TOTAL PROTEIN 6.7 G/DL (5.7-8.2)
== END ==
LOC: M SFHCADAM 15:28
PROVIDERS: ATTEND Physician Assistant
DX: J90 Pleural effusion, not elsewhere classified (principal); R06.09 Other forms of dyspnea

== ENCOUNTER → 2025-01-15 | Outpatient (CLI) | payer MEDICARE, MEDICAID ==
[~2025-01-15] MED LIST changes: +ISOVUE-370 76% 100ML VIAL As Ordered ONE
== END ==
LOC: M RAD 12:25
PROVIDERS: ATTEND Physician Assistant
DX: J90 Pleural effusion, not elsewhere classified (principal); R06.09 Other forms of dyspnea; Q25.72 Congenital pulmonary arteriovenous malformation; J98.11 Atelectasis
CPT/HCPCS: 71275; Q9967